=== PATIENT | male | born 1975 | race Hispanic/Latino ===

== ENCOUNTER 2018-02-28 21:07 | Emergency (ER) | payer MEDICARE ==
[~2018-02-28] VITALS: Ht 177.8 cm; Wt 127.0 kg
--- OUTSIDE RECORDS SUMMARY | 2018-02-28 21:11 | XMS REPORT | Clinical Summary ---
Author Author [facility]Advanced [facility] Address Unknown Phone Unavailable Care Team Providers Care Reel Winder Name Role Phone PCP Unavailable Allergies No Known Allergies Current Medications Prescription Sig. Disp. Refills Start End Date Status Date predniSONE (DELTASONE) 20 Take 20 mg by mouth 2 Active MG tabletIndications: (two) times daily. Systemic Lupus Erythematosus methotrexate 2.5 MG Take 2.5 mg by mouth once Active tabletIndications: a week. Systemic Lupus Erythematosus metoprolol (LOPRESSOR) Take 100 mg by mouth Active 100 MG tabletIndications: daily. hypertension cloNIDine (CATAPRES-TTS) Place 1 patch onto the Active 0.2 mg/24 hr skin once a week. patchIndications: hypertension lamoTRIgine (LAMICTAL) Take 100 mg by mouth 2 Active 100 MG tabletIndications: (two) times daily. Bipolar ARIPiprazole (ABILIFY) 15 Take 15 mg by mouth 2 Active MG tabletIndications: (two) times daily. Bipolar furosemide (LASIX) 20 MG Take 20 mg by mouth 2 Active tabletIndications: (two) times daily with Congestive Heart Failure breakfast and dinner. potassium chloride SA Take 10 mEq by mouth Active (K-DUR,KLOR-CON) 10 MEQ daily. tabletIndications: hypokalemia zaleplon (SONATA) 5 MG Take 5 mg by mouth as Active capsuleIndications: needed. Insomnia morphine (MS CONTIN) 30 Take 1 tablet (30 mg 28 tablet 0 05/02/20 MG 12 hr tablet total) by mouth every 12 17 17 (twelve) hours for 30 days. Max Daily Amount: 60 mg oxyCODONE-acetaminophen Take 1 tablet by mouth 30 tablet 0 05/02/20 05/12/20 (PERCOCET) 5-325 mg per every 6 (six) hours as 17 17 tablet needed for up to 10 days. Max Daily Amount: 4 tablets Active Problems Problem Noted Date Bipolar affective disorder, remission status unspecified ([facility]) 04/27/2017 Left hip pain 04/25/2017 Lupus 04/25/2017 Chronic diastolic CHF (congestive heart failure) ([facility]) 04/25/2017 Bipolar disorder ([facility]) 04/25/2017 Encounters Date Type Specialty Care Team Description 04/25/2017 [facility] Internal Medicine Cristian Vides MD Bipolar affective - Encounter Ariana Delgado, disorder, remission 05/02/2017 MD status unspecified Espinoza Khan MD ([facility]);Chronic diastolic Amber Gamble MD CHF (congestive heart failure) ([facility]);Left hip pain;Systemic lupus erythematosus, unspecified SLE type, unspecified organ involvement status ([facility]) after 02/27/2017 Family History Medical History Relation Name Comments Heart disease Father Lupus Maternal Aunt Cancer Mother Heart disease Mother Lupus Mother Relation Name Status Comments Father Maternal Aunt Mother Social History Tobacco Use Types Packs/Day Years Used Date Former Smoker Alcohol Use Drinks/Week oz/Week Comments No Sex Assigned at Date Recorded Not on file Last Filed Vital Signs Vital Sign Reading Time Taken Blood Pressure 129/81 05/02/2017 7:11 AM CDT Pulse 84 05/02/2017 7:11 AM CDT Temperature 35.9 C (96.7 F) 05/02/2017 7:11 AM CDT Respiratory Rate 18 05/02/2017 9:52 AM CDT Oxygen Saturation 95% 05/02/2017 7:11 AM CDT Inhaled Oxygen - - Concentration Weight 124.7 kg (275 lb) 04/25/2017 5:15 PM CDT Height 177.8 cm (5' 10") 04/25/2017 5:15 PM CDT Body Mass Index 39.46 04/25/2017 5:15 PM CDT Plan of Treatment Not on file Results * CBC (Hemogram only) (05/02/2017 5:51 AM) Component Value Ref Range WBC 16.6 (H) 4.0 - 10.0 K/ L RBC 5.36 4.20 - 5.80 M/ L Hemoglobin 16.1 13.0 - 16.8 GM/DL Hematocrit 47.1 40.0 - 50.0 % MCV 88.0 82.0 - 98.0 fL MCH 30.1 27.0 - 33.0 pg MCHC 34.2 32.0 - 36.0 GM/DL RDW 14.5 (H) 10.3 - 14.2 % Platelets 252 150 - 430 K/CU MM MPV 6.9 6.5 - 10.5 fL nRBC 0 0 - 0 /100 WBC Specimen Performing Laboratory Blood - Arm, Left [address] [address] Narrative 0.00 * Calcium, Ionized (05/01/2017 4:06 AM) Only the most recent of 4 results within the time period is included. Component Value Ref Range Calcium, Ion 1.16 1.12 - 1.27 mmol/L pH, Blood 7.38 Specimen Performing Laboratory Blood - Arm, Right [address] [address] * CBC with platelet count + automated diff (05/01/2017 4:06 AM) Only the most recent of 5 results within the time period is included. Component Value Ref Range WBC 17.3 (H) 4.0 - 10.0 K/ L RBC 5.40 4.20 - 5.80 M/ L Hemoglobin 16.1 13.0 - 16.8 GM/DL Hematocrit 47.4 40.0 - 50.0 % MCV 87.7 82.0 - 98.0 fL MCH 29.7 27.0 - 33.0 pg MCHC 33.9 32.0 - 36.0 GM/DL RDW 14.2 10.3 - 14.2 % Platelets 255 150 - 430 K/CU MM MPV 6.9 6.5 - 10.5 fL nRBC 0 0 - 0 /100 WBC % Neutros 79 % % Lymphs 13 % % Monos 6 % % Eos 1 % % Baso 0 % # Neutros 13.60 (H) 1.80 - 8.00 K/ L # Lymphs 2.31 1.48 - 4.50 K/ L # Monos 1.11 0.00 - 1.30 K/ L # Eos 0.20 0.00 - 0.50 K/ L # Baso 0.08 0.00 - 0.20 K/ L Specimen Performing Laboratory Blood - Arm, Right [address] [address] Narrative 0.00 * CBC with platelet count + automated diff (05/01/2017 4:06 AM) Only the most recent of 5 results within the time period is included. Specimen Performing Laboratory Blood Narrative The following orders were created for panel order CBC with platelet count + automated diff. Procedure Abnormality Status --------- - ------ CBC with platelet count ...[[id number]]AbnormalFinal result Please view results for these tests on the individual orders. * Phosphorus (05/01/2017 4:06 AM) Only the most recent of 4 results within the time period is included. Component Value Ref Range Phosphorus 3.9Comment: Specimen slightly hemolyzed 2.3 - 4.7 mg/dL Specimen Performing Laboratory Blood - Arm, [address] [address] * Magnesium (05/01/2017 4:06 AM) Only the most recent of 4 results within the time period is included. Component Value Ref Range Magnesium 2.3Comment: Specimen slightly hemolyzed 1.6 - 2.6 mg/dL Specimen Performing Laboratory Blood - Arm, [address] [address] * Basic Metabolic Panel (05/01/2017 4:06 AM) Only the most recent of 5 results within the time period is included. Component Value Ref Range Sodium 139 136 - 145 meq/L Potassium 4.7Comment: Specimen slightly hemolyzed 3.5 - 5.1 meq/L Chloride 107 98 - 107 meq/L CO2 25 22 - 29 meq/L BUN 17 7 - 21 mg/dL Creatinine 0.82Comment: Specimen slightly hemolyzed 0.57 - 1.25 mg/dL Glucose 171 (H) 70 - 105 mg/dL Calcium 9.1 8.4 - 10.2 mg/dL EGFR 105Comment: ESTIMATED GFR IS NOT ACCURATE mL/min/1.73 sq m CREATININE CLEARANCE IN PREDICTING GLOMERULAR FILTRATION RATE. ESTIMATED GFR IS NOT APPLICABLE FOR DIALYSIS PATIENTS. Specimen Performing Laboratory Blood - Arm, [address] [address] * TSH/Free T4 If Indicated (04/27/2017 3:51 AM) Component Value Ref Range TSH 0.30 (L) 0.35 - 4.94 uIU/mL Specimen Performing Laboratory Blood - Arm, Left [address] [address] * T4, free (04/27/2017 3:51 AM) Component Value Ref Range Free T4 0.85 0.70 - 1.48 ng/dL Specimen Performing Laboratory Blood - Arm, Left [address] [address] * Hemoglobin A1c (04/27/2017 3:51 AM) Component Value Ref Range Hemoglobin A1C 5.7 4.3 - 6.1 % Specimen Performing Laboratory Blood - Arm, [place] [address] * XR hip 2 views left (04/26/2017 3:39 PM) Specimen Performing Laboratory GE RIS Narrative FINAL REPORT INDICATION: Left hip pain. COMPARISON: None. TECHNIQUE: Pelvis radiograph single view. Left hip radiograph two views. FINDINGS: No left hip fracture is demonstrated. Left hip joint space is preserved. There is decreased femoral head neck offset which may predispose to impingement. Acetabular morphology is normal. Soft tissues are unremarkable. Pelvis radiograph demonstrates a right total hip arthroplasty in gross alignment. Femoral component is incompletely imaged. IMPRESSION: Decreased left femoral head neck offset, may predispose to impingement. No fracture or degenerative change in the left hip. Signed: Will Worthington MD Report Verified Date/Time:04/26/2017 15:52:19 Reading Location: [facility] Mammo Reading Room Procedure Note Interface, External Ris In - 04/26/2017 3:54 PM CDT FINAL REPORT INDICATION: Left hip pain. COMPARISON: None. TECHNIQUE: Pelvis radiograph single view. Left hip radiograph two views. FINDINGS: No left hip fracture is demonstrated. Left hip joint space is preserved. There is decreased femoral head neck offset which may predispose to impingement. Acetabular morphology is normal. Soft tissues are unremarkable. Pelvis radiograph demonstrates a right total hip arthroplasty in gross alignment. Femoral component is incompletely imaged. IMPRESSION: Decreased left femoral head neck offset, may predispose to impingement. No fracture or degenerative change in the left hip. Signed: Will Worthington MD Report Verified Date/Time: 04/26/2017 15:52:19 Reading Location: [facility] Enclarity Reading Room * XR pelvis 1 or 2 views (04/26/2017 3:39 PM) Specimen Performing Laboratory GE RIS Narrative FINAL REPORT INDICATION: Left hip pain. COMPARISON: None. TECHNIQUE: Pelvis radiograph single view. Left hip radiograph two views. FINDINGS: No left hip fracture is demonstrated. Left hip joint space is preserved. There is decreased femoral head neck offset which may predispose to impingement. Acetabular morphology is normal. Soft tissues are unremarkable. Pelvis radiograph demonstrates a right total hip arthroplasty in gross alignment. Femoral component is incompletely imaged. IMPRESSION: Decreased left femoral head neck offset, may predispose to impingement. No fracture or degenerative change in the left hip. Signed: Will Worthington MD Report Verified Date/Time:04/26/2017 15:52:19 Reading Location: [facility] Enclarity Reading Room Procedure Note Interface, External Ris In - 04/26/2017 3:54 PM CDT FINAL REPORT INDICATION: Left hip pain. COMPARISON: None. TECHNIQUE: Pelvis radiograph single view. Left hip radiograph two views. FINDINGS: No left hip fracture is demonstrated. Left hip joint space is preserved. There is decreased femoral head neck offset which may predispose to impingement. Acetabular morphology is normal. Soft tissues are unremarkable. Pelvis radiograph demonstrates a right total hip arthroplasty in gross alignment. Femoral component is incompletely imaged. IMPRESSION: Decreased left femoral head neck offset, may predispose to impingement. No fracture or degenerative change in the left hip. Signed: Will Worthington MD Report Verified Date/Time: 04/26/2017 15:52:19 Reading Location: [facility] Enclarity Reading Room after 02/27/2017
--- OUTSIDE RECORDS SUMMARY | 2018-02-28 21:11 | XMS REPORT ---
Author Author [facility] Address Unknown Phone Unavailable Care Team Providers Care Assistant Offset Press Operator Name Role Phone BLAINE AVELAR Unavailable Unavailable Problems This patient has no known problems. Allergies, Adverse Reactions, Alerts This patient has no known allergies or adverse reactions. Medications This patient has no known medications. Results Test Description Test Time Test Comments Text Results Atomic Results Result Comments CBC (HEMOGRAM ONLY) 2017-05-02 06:13:00 WHITE BLOOD CELL COUNT (BEAKER) (test cbxd=809) 16.6 K/ L 4.0-10.0 RED BLOOD CELL COUNT (BEAKER) (test mlno=285) 5.36 M/ L 4.20-5.80 HEMOGLOBIN (BEAKER) (test shfw=341) 16.1 GM/DL 13.0-16.8 HEMATOCRIT (BEAKER) (test ahob=932) 47.1 % 40.0-50.0 MEAN CORPUSCULAR VOLUME (BEAKER) (test gdam=209) 88.0 fL 82.0-98.0 MEAN CORPUSCULAR HEMOGLOBIN (BEAKER) (test qwge=310) 30.1 pg 27.0-33.0 MEAN CORPUSCULAR HEMOGLOBIN CONC (BEAKER) (test qoks=847) 34.2 GM/DL 32.0- 36.0 RED CELL DISTRIBUTION WIDTH (BEAKER) (test ewmx=892) 14.5 % 10.3-14.2 PLATELET COUNT (BEAKER) (test gsda=048) 252 K/CU MM 150-430 MEAN PLATELET VOLUME (BEAKER) (test wgdl=823) 6.9 fL 6.5-10.5 NUCLEATED RED BLOOD CELLS (BEAKER) (test jlvl=345) 0 /100 WBC 0-0 0.00CALCIUM, [id number] 05:25:00* Test Item Value Reference Range Comments CALCIUM IONIZED (BEAKER) (test mdhz=767) 1.16 mmol/L 1.12-1.27 PH, BLOOD (BEAKER) (test lqpi=7242) 7.38 CBC W/PLT COUNT & AUTO [id number] 04:38:00* Test Item Value Reference Range Comments WHITE BLOOD CELL COUNT (BEAKER) (test jxsi=890) 17.3 K/ L 4.0-10.0 RED BLOOD CELL COUNT (BEAKER) (test hbsx=971) 5.40 M/ L 4.20-5.80 HEMOGLOBIN (BEAKER) (test oxkg=654) 16.1 GM/DL 13.0-16.8 HEMATOCRIT (BEAKER) (test mkwu=130) 47.4 % 40.0-50.0 MEAN CORPUSCULAR VOLUME (BEAKER) (test fblv=705) 87.7 fL 82.0-98.0 MEAN CORPUSCULAR HEMOGLOBIN (BEAKER) (test agnd=986) 29.7 pg 27.0-33.0 MEAN CORPUSCULAR HEMOGLOBIN CONC (BEAKER) (test ufnw=879) 33.9 GM/DL 32.0- 36.0 RED CELL DISTRIBUTION WIDTH (BEAKER) (test cttp=946) 14.2 % 10.3-14.2 PLATELET COUNT (BEAKER) (test ehad=768) 255 K/CU MM 150-430 MEAN PLATELET VOLUME (BEAKER) (test rrsx=618) 6.9 fL 6.5-10.5 NUCLEATED RED BLOOD CELLS (BEAKER) (test tbwf=279) 0 /100 WBC 0-0 NEUTROPHILS RELATIVE PERCENT (BEAKER) (test aifj=515) 79 % LYMPHOCYTES RELATIVE PERCENT (BEAKER) (test jmvc=628) 13 % MONOCYTES RELATIVE PERCENT (BEAKER) (test vohp=630) 6 % EOSINOPHILS RELATIVE PERCENT (BEAKER) (test vpgz=961) 1 % BASOPHILS RELATIVE PERCENT (BEAKER) (test raga=151) 0 % NEUTROPHILS ABSOLUTE COUNT (BEAKER) (test pvos=196) 13.60 K/ L 1.80-8.00 LYMPHOCYTES ABSOLUTE COUNT (BEAKER) (test bacw=380) 2.31 K/ L 1.48-4.50 MONOCYTES ABSOLUTE COUNT (BEAKER) (test cpza=925) 1.11 K/ L 0.00-1.30 EOSINOPHILS ABSOLUTE COUNT (BEAKER) (test hrdw=504) 0.20 K/ L 0.00-0.50 BASOPHILS ABSOLUTE COUNT (BEAKER) (test kwjl=051) 0.08 K/ L 0.00-0.20 [id number] 04:37:00* Test Item Value Reference Range Comments MAGNESIUM (BEAKER) (test tvsm=745) 2.3 mg/dL 1.6-2.6 Specimen slightly hemolyzed [id number] 04:37:00* Test Item Value Reference Range Comments PHOSPHORUS (BEAKER) (test izqq=807) 3.9 mg/dL 2.3-4.7 Specimen slightly hemolyzed BASIC METABOLIC [id number] 04:37:00* Test Item Value Reference Range Comments SODIUM (BEAKER) (test drgk=175) 139 meq/L 136-145 POTASSIUM (BEAKER) (test emsj=925) 4.7 meq/L 3.5-5.1 Specimen slightly hemolyzed CHLORIDE (BEAKER) (test alba=142) 107 meq/L 98-107 CO2 (BEAKER) (test mauz=270) 25 meq/L 22-29 BLOOD UREA NITROGEN (BEAKER) (test oymi=943) 17 mg/dL 7-21 CREATININE (BEAKER) (test cmvf=940) 0.82 mg/dL 0.57-1.25 Specimen slightly hemolyzed GLUCOSE RANDOM (BEAKER) (test yqct=693) 171 mg/dL 70-105 CALCIUM (BEAKER) (test fnyc=294) 9.1 mg/dL 8.4-10.2 EGFR (BEAKER) (test duze=2947) 105 mL/min/1.73 sq m ESTIMATED GFR IS NOT ACCURATE CREATININE CLEARANCE IN PREDICTING GLOMERULAR FILTRATION RATE. ESTIMATED GFR IS NOT APPLICABLE FOR DIALYSIS PATIENTS. CBC W/PLT COUNT & AUTO [id number] 07:45:00* Test Item Value Reference Range Comments WHITE BLOOD CELL COUNT (BEAKER) (test ecgv=853) 13.9 K/ L 4.0-10.0 RED BLOOD CELL COUNT (BEAKER) (test ibzr=119) 5.36 M/ L 4.20-5.80 HEMOGLOBIN (BEAKER) (test kefi=282) 15.7 GM/DL 13.0-16.8 HEMATOCRIT (BEAKER) (test srpe=645) 47.1 % 40.0-50.0 MEAN CORPUSCULAR VOLUME (BEAKER) (test tpkp=351) 87.8 fL 82.0-98.0 MEAN CORPUSCULAR HEMOGLOBIN (BEAKER) (test wmzj=797) 29.3 pg 27.0-33.0 MEAN CORPUSCULAR HEMOGLOBIN CONC (BEAKER) (test rwjg=431) 33.4 GM/DL 32.0- 36.0 RED CELL DISTRIBUTION WIDTH (BEAKER) (test vfat=173) 14.2 % 10.3-14.2 PLATELET COUNT (BEAKER) (test ifda=455) 232 K/CU MM 150-430 MEAN PLATELET VOLUME (BEAKER) (test eqxu=581) 7.2 fL 6.5-10.5 NUCLEATED RED BLOOD CELLS (BEAKER) (test uptw=019) 0 /100 WBC 0-0 NEUTROPHILS RELATIVE PERCENT (BEAKER) (test ujkm=331) 74 % LYMPHOCYTES RELATIVE PERCENT (BEAKER) (test eirs=914) 17 % MONOCYTES RELATIVE PERCENT (BEAKER) (test fdoa=705) 8 % EOSINOPHILS RELATIVE PERCENT (BEAKER) (test htke=153) 1 % BASOPHILS RELATIVE PERCENT (BEAKER) (test hnbt=654) 0 % NEUTROPHILS ABSOLUTE COUNT (BEAKER) (test xatu=156) 10.20 K/ L 1.80-8.00 LYMPHOCYTES ABSOLUTE COUNT (BEAKER) (test bwfq=857) 2.35 K/ L 1.48-4.50 MONOCYTES ABSOLUTE COUNT (BEAKER) (test xghl=853) 1.09 K/ L 0.00-1.30 EOSINOPHILS ABSOLUTE COUNT (BEAKER) (test ujsl=271) 0.15 K/ L 0.00-0.50 BASOPHILS ABSOLUTE COUNT (BEAKER) (test pxmc=913) 0.07 K/ L 0.00-0.20 [id number] 07:11:00* Test Item Value Reference Range Comments PHOSPHORUS (BEAKER) (test ajio=004) 3.4 mg/dL 2.3-4.7 [id number] 07:11:00* Test Item Value Reference Range Comments MAGNESIUM (BEAKER) (test thnq=744) 2.1 mg/dL 1.6-2.6 BASIC METABOLIC [id number] 07:11:00* Test Item Value Reference Range Comments SODIUM (BEAKER) (test cgez=306) 136 meq/L 136-145 POTASSIUM (BEAKER) (test jrbu=146) 4.3 meq/L 3.5-5.1 CHLORIDE (BEAKER) (test zkda=521) 104 meq/L 98-107 CO2 (BEAKER) (test ulso=336) 26 meq/L 22-29 BLOOD UREA NITROGEN (BEAKER) (test kzdm=799) 16 mg/dL 7-21 CREATININE (BEAKER) (test wrgy=027) 0.77 mg/dL 0.57-1.25 GLUCOSE RANDOM (BEAKER) (test wint=359) 150 mg/dL 70-105 CALCIUM (BEAKER) (test ptmi=863) 8.5 mg/dL 8.4-10.2 EGFR (BEAKER) (test phst=8671) 112 mL/min/1.73 sq m ESTIMATED GFR IS NOT ACCURATE CREATININE CLEARANCE IN PREDICTING GLOMERULAR FILTRATION RATE. ESTIMATED GFR IS NOT APPLICABLE FOR DIALYSIS PATIENTS. CALCIUM, [id number] 07:07:00* Test Item Value Reference Range Comments CALCIUM IONIZED (BEAKER) (test kfnn=054) 1.08 mmol/L 1.12-1.27 PH, BLOOD (BEAKER) (test izwv=8504) 7.39 HEMOGLOBIN [id number] 23:16:00* Test Item Value Reference Range Comments HEMOGLOBIN A1C (BEAKER) (test opmn=711) 5.7 % 4.3-6.1 [id number] 05:13:00* Test Item Value Reference Range Comments PHOSPHORUS (BEAKER) (test lltd=949) 3.2 mg/dL 2.3-4.7 [id number] 05:13:00* Test Item Value Reference Range Comments MAGNESIUM (BEAKER) (test xnrg=409) 2.1 mg/dL 1.6-2.6 BASIC METABOLIC [id number] 05:13:00* Test Item Value Reference Range Comments SODIUM (BEAKER) (test xqjz=888) 138 meq/L 136-145 POTASSIUM (BEAKER) (test mcop=513) 4.2 meq/L 3.5-5.1 CHLORIDE (BEAKER) (test kmcj=666) 105 meq/L 98-107 CO2 (BEAKER) (test bnti=613) 24 meq/L 22-29 BLOOD UREA NITROGEN (BEAKER) (test ests=608) 15 mg/dL 7-21 CREATININE (BEAKER) (test qgds=248) 0.79 mg/dL 0.57-1.25 GLUCOSE RANDOM (BEAKER) (test gydg=806) 182 mg/dL 70-105 CALCIUM (BEAKER) (test sppx=210) 8.7 mg/dL 8.4-10.2 EGFR (BEAKER) (test dmcu=6842) 109 mL/min/1.73 sq m ESTIMATED GFR IS NOT ACCURATE CREATININE CLEARANCE IN PREDICTING GLOMERULAR FILTRATION RATE. ESTIMATED GFR IS NOT APPLICABLE FOR DIALYSIS PATIENTS. CBC W/PLT COUNT & AUTO [id number] 05:03:00* Test Item Value Reference Range Comments WHITE BLOOD CELL COUNT (BEAKER) (test ufsl=593) 13.7 K/ L 4.0-10.0 RED BLOOD CELL COUNT (BEAKER) (test weah=249) 5.50 M/ L 4.20-5.80 HEMOGLOBIN (BEAKER) (test fjjy=934) 15.9 GM/DL 13.0-16.8 HEMATOCRIT (BEAKER) (test kffv=308) 48.2 % 40.0-50.0 MEAN CORPUSCULAR VOLUME (BEAKER) (test dnhf=491) 87.7 fL 82.0-98.0 MEAN CORPUSCULAR HEMOGLOBIN (BEAKER) (test djkf=191) 29.0 pg 27.0-33.0 MEAN CORPUSCULAR HEMOGLOBIN CONC (BEAKER) (test qnyw=587) 33.0 GM/DL 32.0- 36.0 RED CELL DISTRIBUTION WIDTH (BEAKER) (test xcmh=730) 12.4 % 10.3-14.2 PLATELET COUNT (BEAKER) (test haxe=228) 235 K/CU MM 150-430 MEAN PLATELET VOLUME (BEAKER) (test kjba=018) 6.9 fL 6.5-10.5 NUCLEATED RED BLOOD CELLS (BEAKER) (test opkk=595) 0 /100 WBC 0-0 NEUTROPHILS RELATIVE PERCENT (BEAKER) (test fszp=286) 73 % LYMPHOCYTES RELATIVE PERCENT (BEAKER) (test tbkj=615) 19 % MONOCYTES RELATIVE PERCENT (BEAKER) (test ngly=591) 7 % EOSINOPHILS RELATIVE PERCENT (BEAKER) (test xilj=881) 1 % BASOPHILS RELATIVE PERCENT (BEAKER) (test tgiz=075) 1 % NEUTROPHILS ABSOLUTE COUNT (BEAKER) (test xxst=546) 9.95 K/ L 1.80-8.00 LYMPHOCYTES ABSOLUTE COUNT (BEAKER) (test hmwx=501) 2.66 K/ L 1.48-4.50 MONOCYTES ABSOLUTE COUNT (BEAKER) (test wgde=706) 0.95 K/ L 0.00-1.30 EOSINOPHILS ABSOLUTE COUNT (BEAKER) (test eugx=651) 0.09 K/ L 0.00-0.50 BASOPHILS ABSOLUTE COUNT (BEAKER) (test ktvm=302) 0.08 K/ L 0.00-0.20 0.00CALCIUM, [id number] 04:54:00* Test Item Value Reference Range Comments CALCIUM IONIZED (BEAKER) (test jjgx=101) 1.09 mmol/L 1.12-1.27 PH, BLOOD (BEAKER) (test amng=8275) 7.42 T4, [id number] 09:04:00* Test Item Value Reference Range Comments FREE T4 (BEAKER) (test dyzb=370) 0.85 ng/dL 0.70-1.48 TSH/FREE T4 IF [id number] 04:44:00* Test Item Value Reference Range Comments THYROID STIMULATING HORMONE (BEAKER) (test ofqn=780) 0.30 uIU/mL 0.35-4.94 CBC W/PLT COUNT & AUTO [id number] 04:25:00* Test Item Value Reference Range Comments WHITE BLOOD CELL COUNT (BEAKER) (test btwg=692) 12.3 K/ L 4.0-10.0 RED BLOOD CELL COUNT (BEAKER) (test fnur=001) 5.31 M/ L 4.20-5.80 HEMOGLOBIN (BEAKER) (test bbwv=826) 15.6 GM/DL 13.0-16.8 HEMATOCRIT (BEAKER) (test kmry=601) 46.6 % 40.0-50.0 MEAN CORPUSCULAR VOLUME (BEAKER) (test alco=714) 87.7 fL 82.0-98.0 MEAN CORPUSCULAR HEMOGLOBIN (BEAKER) (test vbsp=615) 29.4 pg 27.0-33.0 MEAN CORPUSCULAR HEMOGLOBIN CONC (BEAKER) (test uzpn=085) 33.6 GM/DL 32.0- 36.0 RED CELL DISTRIBUTION WIDTH (BEAKER) (test jzvs=925) 12.5 % 10.3-14.2 PLATELET COUNT (BEAKER) (test wqxu=264) 233 K/CU MM 150-430 MEAN PLATELET VOLUME (BEAKER) (test fita=985) 7.1 fL 6.5-10.5 NUCLEATED RED BLOOD CELLS (BEAKER) (test kfjj=343) 0 /100 WBC 0-0 NEUTROPHILS RELATIVE PERCENT (BEAKER) (test gjdg=888) 78 % LYMPHOCYTES RELATIVE PERCENT (BEAKER) (test yezb=959) 15 % MONOCYTES RELATIVE PERCENT (BEAKER) (test myhy=239) 6 % EOSINOPHILS RELATIVE PERCENT (BEAKER) (test hlhh=787) 1 % BASOPHILS RELATIVE PERCENT (BEAKER) (test ovjw=278) 0 % NEUTROPHILS ABSOLUTE COUNT (BEAKER) (test aqmi=970) 9.60 K/ L 1.80-8.00 LYMPHOCYTES ABSOLUTE COUNT (BEAKER) (test tond=972) 1.85 K/ L 1.48-4.50 MONOCYTES ABSOLUTE COUNT (BEAKER) (test ymuu=657) 0.78 K/ L 0.00-1.30 EOSINOPHILS ABSOLUTE COUNT (BEAKER) (test zzaq=540) 0.07 K/ L 0.00-0.50 BASOPHILS ABSOLUTE COUNT (BEAKER) (test rhsv=156) 0.04 K/ L 0.00-0.20 [id number] 04:23:00* Test Item Value Reference Range Comments PHOSPHORUS (BEAKER) (test oyfa=705) 2.8 mg/dL 2.3-4.7 [id number] 04:23:00* Test Item Value Reference Range Comments MAGNESIUM (BEAKER) (test vawd=855) 2.0 mg/dL 1.6-2.6 BASIC METABOLIC [id number] 04:23:00* Test Item Value Reference Range Comments SODIUM (BEAKER) (test uccb=792) 137 meq/L 136-145 POTASSIUM (BEAKER) (test wgdh=594) 4.3 meq/L 3.5-5.1 CHLORIDE (BEAKER) (test heep=914) 107 meq/L 98-107 CO2 (BEAKER) (test taic=044) 22 meq/L 22-29 BLOOD UREA NITROGEN (BEAKER) (test hxcw=712) 17 mg/dL 7-21 CREATININE (BEAKER) (test fqnh=751) 0.82 mg/dL 0.57-1.25 GLUCOSE RANDOM (BEAKER) (test ddxf=711) 181 mg/dL 70-105 CALCIUM (BEAKER) (test zhvx=865) 8.4 mg/dL 8.4-10.2 EGFR (BEAKER) (test piel=1730) 105 mL/min/1.73 sq m ESTIMATED GFR IS NOT ACCURATE CREATININE CLEARANCE IN PREDICTING GLOMERULAR FILTRATION RATE. ESTIMATED GFR IS NOT APPLICABLE FOR DIALYSIS PATIENTS. CALCIUM, [id number] 04:09:00* Test Item Value Reference Range Comments CALCIUM IONIZED (BEAKER) (test wabq=409) 1.10 mmol/L 1.12-1.27 PH, BLOOD (BEAKER) (test aaox=8767) 7.41 BASIC METABOLIC [id number] 05:08:00* Test Item Value Reference Range Comments SODIUM (BEAKER) (test upkk=344) 137 meq/L 136-145 POTASSIUM (BEAKER) (test ejps=969) 4.6 meq/L 3.5-5.1 CHLORIDE (BEAKER) (test ztim=447) 108 meq/L 98-107 CO2 (BEAKER) (test ntva=686) 21 meq/L 22-29 BLOOD UREA NITROGEN (BEAKER) (test gghs=238) 15 mg/dL 7-21 CREATININE (BEAKER) (test ycsn=890) 0.80 mg/dL 0.57-1.25 GLUCOSE RANDOM (BEAKER) (test umxx=447) 177 mg/dL 70-105 CALCIUM (BEAKER) (test isxl=521) 8.4 mg/dL 8.4-10.2 EGFR (BEAKER) (test pmos=9671) 108 mL/min/1.73 sq m ESTIMATED GFR IS NOT ACCURATE CREATININE CLEARANCE IN PREDICTING GLOMERULAR FILTRATION RATE. ESTIMATED GFR IS NOT APPLICABLE FOR DIALYSIS PATIENTS. CBC W/PLT COUNT & AUTO [id number] 04:53:00* Test Item Value Reference Range Comments WHITE BLOOD CELL COUNT (BEAKER) (test zflb=856) 11.2 K/ L 4.0-10.0 RED BLOOD CELL COUNT (BEAKER) (test ksmt=694) 5.34 M/ L 4.20-5.80 HEMOGLOBIN (BEAKER) (test zvuy=475) 15.4 GM/DL 13.0-16.8 HEMATOCRIT (BEAKER) (test rckg=534) 46.3 % 40.0-50.0 MEAN CORPUSCULAR VOLUME (BEAKER) (test izca=089) 86.7 fL 82.0-98.0 MEAN CORPUSCULAR HEMOGLOBIN (BEAKER) (test wkxl=124) 28.8 pg 27.0-33.0 MEAN CORPUSCULAR HEMOGLOBIN CONC (BEAKER) (test syem=708) 33.2 GM/DL 32.0- 36.0 RED CELL DISTRIBUTION WIDTH (BEAKER) (test kjii=618) 14.3 % 10.3-14.2 PLATELET COUNT (BEAKER) (test ijvd=404) 217 K/CU MM 150-430 MEAN PLATELET VOLUME (BEAKER) (test ayif=869) 7.0 fL 6.5-10.5 NUCLEATED RED BLOOD CELLS (BEAKER) (test elwq=883) 0 /100 WBC 0-0 NEUTROPHILS RELATIVE PERCENT (BEAKER) (test alep=459) 81 % LYMPHOCYTES RELATIVE PERCENT (BEAKER) (test plxw=992) 13 % MONOCYTES RELATIVE PERCENT (BEAKER) (test yzgf=820) 6 % EOSINOPHILS RELATIVE PERCENT (BEAKER) (test ifuo=577) 0 % BASOPHILS RELATIVE PERCENT (BEAKER) (test guxl=002) 0 % NEUTROPHILS ABSOLUTE COUNT (BEAKER) (test klmc=383) 9.04 K/ L 1.80-8.00 LYMPHOCYTES ABSOLUTE COUNT (BEAKER) (test exgj=490) 1.43 K/ L 1.48-4.50 MONOCYTES ABSOLUTE COUNT (BEAKER) (test flbp=193) 0.70 K/ L 0.00-1.30 EOSINOPHILS ABSOLUTE COUNT (BEAKER) (test tfun=435) 0.05 K/ L 0.00-0.50 BASOPHILS ABSOLUTE COUNT (BEAKER) (test shwr=875) 0.02 K/ L 0.00-0.20 0.00
[2018-02-28] MEDS ORDERED: CEFTRIAXONE SOD 1 GM VIAL IM ONE (21:30)
[2018-02-28] MEDS ORDERED: DEXAMETHASONE SOD PHOS 10 MG/1 ML VIAL INJ ONE (22:00)
[2018-02-28] MEDS ORDERED: DIPHENHYDRAMINE HCL INJ 50 MG/ML VIAL IM ONE (22:00)
[2018-02-28 22:20] VITALS: BP 152/89
== END 2018-02-28 22:20 | disposition home or self-care (01) ==
LOC: FSED 21:07
DX: R50.9 Fever, unspecified (principal); R05 Cough; H66.92 Otitis media, unspecified, left ear; J02.9 Acute pharyngitis, unspecified; J01.00 Acute maxillary sinusitis, unspecified; J01.10 Acute frontal sinusitis, unspecified
CPT/HCPCS: 99283; J0696; J1100; J1200